=== PATIENT | female | born 1970 | race Caucasian/White ===

== ENCOUNTER 2018-05-05 10:24 | Emergency (ER) | payer OTHER, MEDICAID ==
--- NOTE | 2018-05-05 10:46 | EDPHY ---
H & P Stated Complaint: Neck pain Time Seen by Provider: 05/05/18 10:45 HPI/ROS: HPI: This is a 47-year-old female who presents with Chief Complaint: Neck pain Location: Posterior neck Quality: Pain Duration: Weeks Signs and Symptoms: No bleeding, no radiation, no numbness, no weakness, no tingling, no incontinence, no decreased range of motion, no swelling, + pain, no fever, no neck stiffness, no headache Timing: Daily Severity: 02/17 Context: Patient is currently homeless recently moved to [facility] presents with chronic posterior neck pain that is described as mild, constant, nonradiating in nature that has been present for several weeks. Patient reports that she was treated in December in [facility] for what seems to be epidural abscess related to MRSA infection. She reports that she was placed into a residential for approximately 3 months to receive IV vancomycin. They antibiotic therapy was completed at the end of March. Patient reports that when she originally was diagnosed she was having fevers, neck stiffness, headaches, fatigue, chills. She denies any of these symptoms at this time. She reports that she has not had any of her Lyrica that she takes for chronic neck pain 75 mg twice daily for several weeks. She has a history of CVA and takes Xarelto daily but has not had this medication for several weeks either. She is unsure of the dose of the Xarelto. Patient reports that she only takes it once daily. She will be living in [facility]. She does not have a primary care provider. She reports that she was an IV drug user in the past but has not used since November of 2017. Modifying Factors: None Comment: ROS: see HPI Constitutional: No fever, no chills, no weight loss Eyes: No blurred vision Respiratory: No shortness of breath, no cough Cardiovascular: No chest pain Gastrointestinal: No nausea, no vomiting no diarrhea Genitourinary: No dysuria Extremities: No myalgias Neurologic: No weakness, no numbness Skin: No rashes Hematologic: No bruising, no bleeding MEDICAL/SURGICAL/SOCIAL HISTORY: Medical history: HEP C, clotting disorder, CVA, MRSA-epidural cervical abscess. Postmenopausal. Surgical history: Denies Social history: Homeless. CONSTITUTIONAL: Nontoxic appearing middle-aged white female who appears older than stated age, awake and alert, no obvious distress HEENT: Atraumatic and normocephalic. Poor dentition with missing front teeth. NECK: supple, no midline tenderness, flexion 45 degrees, extension 45 degrees, right and left lateral flexion 45 degrees. No meningismus. Cardiovascular: Normal S1/S2, regular rate, regular rhythm, without murmur rub or gallop. PULMONARY/CHEST: Symmetrical and nontender. no crepitus. Clear to auscultation bilaterally. Good air movement. No accessory muscle usage. ABDOMEN: Soft, nondistended, nontender, no ecchymosis. EXTREMITIES: 2/2 pulses, strength 5/5, good light touch sensation. no deformities, no clubbing, no cyanosis or edema. NEUROLOGICAL: no focal neuro deficits. GCS 15. Light touch sensation intact. SKIN: Warm and dry, no erythema. no rash. Good capillary refill. Source: Patient Exam Limitations: No limitations - Personal History LMP (Females 10-55): Post Menopausal Current Tetanus/Diphtheria Vaccine: Yes - Medical/Surgical History Hx Asthma: No Hx Chronic Respiratory Disease: No Hx Diabetes: No Hx Cardiac Disease: No Hx Renal Disease: No Hx Cirrhosis: No Hx Alcoholism: No Hx HIV/AIDS: No Hx Splenectomy or Spleen Trauma: No Other PMH: HEP C, clotting disorder, CVA,MRSA - Social History Smoking Status: Light smoker Constitutional: Initial Vital Signs Temperature (C) 36.6 C 05/05/18 10:28 Heart Rate 87 05/05/18 10:28 Respiratory Rate 20 05/05/18 10:28 Blood Pressure 126/66 H 05/05/18 10:28 O2 Sat (%) 97 05/05/18 10:28 O2 Delivery Mode Room Air Allergies/Adverse Reactions: haloperidol [From Haldol] Allergy (Verified 05/05/18 10:32) haloperidol lactate [From Haldol] Allergy (Verified 05/05/18 10:32) meperidine HCl [From Demerol] Allergy (Verified 05/05/18 10:32) morphine Allergy (Verified 05/05/18 10:32) Home Medications: Medication Instructions Recorded clonazePAM [KlonOPIN] 1 mg PO Q8 PRN #21 tab 05/07/16 Xarelto 05/20/16 Pregabalin [Lyrica 75mg (*)] 75 mg PO BID #60 cap 05/05/18 Rivaroxaban [Xarelto 10mg (*)] 10 mg PO DAILY #30 tab 05/05/18 Medical Decision Making - Diagnostics Imaging Results: Imaging Impressions Cervical Spine X-Ray 05/05/18 11:06 Impression: Severe degenerative change and spondylolisthesis from C5 through C7. If symptoms persist and clinical suspicion warrants, consider MRI. ED Course/Re-evaluation: Vital signs reviewed upon arrival and stable. Cervical x-ray ordered and patient given Lyrica 75 mg. No signs of neurovascular compromise/tenting of skin/compartment syndrome/ extremities and joints examined above and below area of concern and are neurovascularly intact/cauda equina syndrome/epidural hematoma/myositis/ abscess. Case management consult for assistance regarding medications as well as to establish care with primary care at [facility]. 1205: Cervical x-ray my read shows severe degenerative disc disease at C5-C7. Pain adequately controlled at this time. Patient will be given refills of her Xarelto and Lyrica with [facility] follow-up appointment per case management. This patient was seen under the supervision of my secondary supervising physician. I evaluated care for this patient independently. Discussed this patient with Dr. Castro. Differential Diagnosis: Differential diagnosis includes but is not limited to cervical degenerative disc disease, cervical radiculopathy, chronic neck pain, out of medications. - Data Points Medications Given: Discontinued Medications Pregabalin (Lyrica) 75 mg PO ONCE ONE Stop: 05/05/18 11:08 Last Admin: 05/05/18 11:56 Dose: 75 mg Departure - Departure Disposition: Home, Routine, Self-Care Clinical Impression: Homeless, Has run out of medications, Degenerative disc disease, cervical, Chronic neck pain, History of stroke, Chronic anticoagulation Condition: Good Instructions: Pregabalin (By mouth), Rivaroxaban (By mouth), Degenerative Disc Disease (ED) Referrals: [facility],. [Clinic] - 5-7 days, call for appt. Prescriptions: Pregabalin [Lyrica 75mg (*)] 75 mg PO BID #60 cap Rivaroxaban [Xarelto 10mg (*)] 10 mg PO DAILY #30 tab
[2018-05-05] MEDS ORDERED: PREGABALIN 75 MG CAP PO ONE (11:07)
[2018-05-05 12:32] VITALS: BP 97/73
--- NOTE | 2018-05-05 16:50 | ASDISCHSUM ---
Discharge Information Plan Status:Homeless/Senior Living Medically Cleared to Leave: Discharge Date:05/05/2018 12:25 PM CM D/C Disposition:Streets (Homeless) ADT D/C Disposition:Home, Routine, Self-Care Projected Discharge Date:05/05/2018 12:25 PM Transportation at D/C:None or Unknown Discharge Delay Reason: Follow-Up Date:05/05/2018 12:25 PM Discharge Slot: Final Diagnosis: Placement Information Patient Contact Information Contact Name:TAHIR Relationship: Address: Home Phone: Work Phone: City: Alternate Phone: State/Zip Code: Email: Financial Information Financial Class:Medicare Primary Plan Desc:MEDICARE OUTPATIENT Primary Plan Number:[id number] Secondary Plan Desc:[place] Secondary Plan Number:[id number] Assessment Information [facility] CM Progress Note CM Note CM Note Notes: Spoke w/pt about following up w[facility], pt states she has been seen there in the past. Pt also provided contact information on PC. Pt also provided info on [facility]. Pt provided prescriptions for her to fill at a pharmacy of her choice. Pt states she has been back in [place] for the past 3 weeks. Pt has been staying at [facility]. CM available for further assistance. Date Signed: 05/05/2018 04:49 PM Electronically Signed By:Celena Brady RN Intervention Information Intervention Type:Community Resources Date of Service:05/05/2018 04:49 PM Patient Type:Emergency Room Staff Member:WOJCIECH Brady [place] Hours:0.25 Discipline:Director Pharmaceutical Severity: Comment: Intervention Type:Health Clinic Date of Service:05/05/2018 04:49 PM Patient Type:Emergency Room Staff Member:WOJCIECH Brady [place] Hours:0.25 Discipline:Director Pharmaceutical Severity: Comment:
== END 2018-05-05 12:25 | disposition home or self-care (01) ==
DX: M50.30 Other cervical disc degeneration, unspecified cervical region (principal); G89.29 Other chronic pain; F17.200 Nicotine dependence, unspecified, uncomplicated; Z59.0 Homelessness; Z76.0 Encounter for issue of repeat prescription; Z79.01 Long term (current) use of anticoagulants; Z86.73 Personal history of transient ischemic attack (TIA), and cerebral infarction without residual deficits